=== PATIENT | female | born 1950 | race Caucasian/White ===

== ENCOUNTER 2020-11-21 11:58 | Emergency (ER) | payer OTHER ==
[2020-11-21 13:33] LABS: BASOPHIL 0.7 % (0-2); EOSINOPHIL 1.9 % (0-7); HCT 39.1 % (37.0-47.0); HGB 13.9 g/dl (12.5-16.0); LYMPHOCYTE 27.1 % (15-48); MCH 31.2 pg (25.0-31.0); MCHC 35.5 g/dL (32.0-36.0); MCV 87.7 fL (78.0-100.0); MONOCYTE 5.6 % (0-12); MPV 10.4 fL (6.0-9.5); NEUTROPHIL 64.4 % (41-80); NRBC 0; PLT 159 K/uL (150-400); RBC 4.46 M/uL (4.20-5.40); RDW 11.8 % (11.5-14.0); WBC 9.5 K/uL (4.0-10.5)
[2020-11-21 14:22] LABS: ALBUMIN 3.5 g/dL (3.4-5.0); BILIRUBIN - TOTAL 0.4 mg/dL (0.2-1.0); BUN/CREAT RATIO (CALC) 12.7 RATIO; CREATININE 1.1 mg/dL (0.51-0.95); GLOBULIN (CALCULATION) 3.1 g/dL; POTASSIUM 4.4 mmol/L (3.5-5.1); TOTAL PROTEIN 6.6 g/dL (6.4-8.2)
[2020-11-21 14:24] LABS: PRO-BNP 251 pg/mL (<125)
== END 2020-11-21 15:54 | disposition home or self-care (01) ==
LOC: FER 11:58
PROVIDERS: Emergency Medicine
DX: M79.662 Pain in left lower leg (principal); M79.661 Pain in right lower leg; T46.6X5A Adverse effect of antihyperlipidemic and antiarteriosclerotic drugs, initial encounter; I45.10 Unspecified right bundle-branch block; I51.9 Heart disease, unspecified; E11.9 Type 2 diabetes mellitus without complications; I10 Essential (primary) hypertension; Z88.8 Allergy status to other drugs, medicaments and biological substances; Z79.899 Other long term (current) drug therapy; Z79.84 Long term (current) use of oral hypoglycemic drugs; Y92.009 Unspecified place in unspecified non-institutional (private) residence as the place of occurrence of the external cause
CPT/HCPCS: 36415; 71046; 80053; 83880; 84443; 84484; 85025; 93005

== ENCOUNTER → 2021-07-10 | Day surgery (SDC) | payer OTHER ==
[~2021-07-10] VITALS: Ht 157.5 cm; Wt 88.9 kg
[~2021-07-10] MED LIST: ADULTS 50 PLUS1 EACH PO; AZO STANDARD95 MG PO; CIMETIDINE300 MG PO; FLUTICASONE PRO16 GM; GLIPIZIDE10 MG PO; HCTZ25 MG PO; LOSARTAN POTASS50 MG PO; OCUVITE ADULT1 EAC1 PO; PROPRANOLOL HC160 MG PO; TRESIBA FL100 UNIT/1 SC; VENTOLIN HFA18 GM INH
== END | disposition home or self-care (01) ==
LOC: FAS 08:03
DX: Z12.11 Encounter for screening for malignant neoplasm of colon (principal); K57.30 Diverticulosis of large intestine without perforation or abscess without bleeding; I11.0 Hypertensive heart disease with heart failure; I50.9 Heart failure, unspecified; E11.65 Type 2 diabetes mellitus with hyperglycemia; H54.61 Unqualified visual loss, right eye, normal vision left eye; K21.9 Gastro-esophageal reflux disease without esophagitis; G47.33 Obstructive sleep apnea (adult) (pediatric); M19.90 Unspecified osteoarthritis, unspecified site; F41.9 Anxiety disorder, unspecified; J45.20 Mild intermittent asthma, uncomplicated; H26.9 Unspecified cataract; F32.A Depression, unspecified; E78.5 Hyperlipidemia, unspecified; G43.909 Migraine, unspecified, not intractable, without status migrainosus; Z98.51 Tubal ligation status; Z88.8 Allergy status to other drugs, medicaments and biological substances; Z79.899 Other long term (current) drug therapy; Z80.0 Family history of malignant neoplasm of digestive organs; Z82.49 Family history of ischemic heart disease and other diseases of the circulatory system
CPT/HCPCS: J2250; J2704; J7120